=== PATIENT | male | born 1995 | race Caucasian/White ===

== ENCOUNTER 2024-02-25 19:46 | Emergency (ER) | payer MEDICAID, OTHER ==
[~2024-02-25] VITALS: Ht 175.3 cm; Wt 81.6 kg
[2024-02-25] MEDS ORDERED: CEPHALEXIN MONOHYDRATE 500 MG CAPSULE PO ONE ×2 (21:24→21:25)
[2024-02-25] MEDS: CEPHALEXIN MONOHYDRATE 500 MG CAPSULE PO ONE (21:24)
[2024-02-25] MEDS: IBUPROFEN 600 MG TABLET PO ONE (21:24)
[2024-02-25] MEDS ORDERED: IBUPROFEN 600 MG TABLET ONE ×2 (21:24→21:25)
[2024-02-25] MEDS ORDERED: IBUP-1955 PO (21:41)
[2024-02-25] MEDS ORDERED: CEPH500C2 PO (21:41)
[2024-02-25 21:46] VITALS: BP 135/85; TEMP 98.3; O2SAT 99
== END 2024-02-25 21:46 | disposition home or self-care (01) ==
LOC: ER 19:53
DX: J34.0 Abscess, furuncle and carbuncle of nose (principal); Z60.2 Problems related to living alone

== ENCOUNTER 2025-07-04 22:45 | Emergency (ER) | payer OTHER ==
[~2025-07-04 22:45] MED LIST: CEPH500C2 PO; IBUP-1955 PO
== END 2025-07-05 05:01 | disposition left against medical advice (07) ==
LOC: ER 22:52
DX: Z00.00 Encounter for general adult medical examination without abnormal findings (principal); Z53.21 Procedure and treatment not carried out due to patient leaving prior to being seen by health care provider